=== PATIENT | male | born 1985 | race Caucasian/White ===

== ENCOUNTER → 2019-10-18 | Outpatient (CLI) | payer OTHER | END | disposition home or self-care (01) | LOC: CFH 07:50 | PROVIDERS: ATTEND Internal Medicine Cardiovascular Disease | DX: I37.1 Nonrheumatic pulmonary valve insufficiency (principal); I51.7 Cardiomegaly; Z82.49 Family history of ischemic heart disease and other diseases of the circulatory system; Z87.891 Personal history of nicotine dependence | CPT/HCPCS: 93306 ==

== ENCOUNTER → 2020-06-24 | Outpatient (CLI) | payer OTHER | END | disposition home or self-care (01) | LOC: CFH 12:07 | PROVIDERS: ATTEND Internal Medicine Cardiovascular Disease | DX: I21.19 ST elevation (STEMI) myocardial infarction involving other coronary artery of inferior wall (principal); R00.2 Palpitations; R94.31 Abnormal electrocardiogram [ECG] [EKG]; I10 Essential (primary) hypertension | CPT/HCPCS: 78452; 93017; A9502 ==

== ENCOUNTER → 2020-07-10 | Day surgery (SDC) | payer OTHER ==
[~2020-07-10] VITALS: Ht 180.3 cm; Wt 93.2 kg
[~2020-07-10] MED LIST: ANAS1TAB49 PO; ATOR-2 PO; BIVALIRUDIN 250 MG ONE; FENTANYL PF 100 MCG/2ML ONE; HEPARIN 1,000 UNITS/ML, 10ML ONE; LIDOCAINE-MPF 1%, 5ML ONE; MIDAZOLAM 1 MG/ML, 5ML ONE; NITROGLYCERIN 30 MCG/ML, 20ML VIAL ONE; SODIUM CHLORIDE 0.9% 1,000 ML IV SCH; TEST200V3 IM; TICAGRELOR 90 MG TABLET ONE; VERAPAMIL 2.5 MG/ML, 2ML ONE
[2020-07-10 09:00] VITALS: BP 130/88
[2020-07-10 09:27] LABS: BASOPHILS % (AUTO) 1 % (0-1); EOSINOPHILS % (AUTO) 1 % (1-7); LYMPHOCYTES % (AUTO) 23 % (22-44); MEAN CORPUSCULAR HGB CONC 34.2 g/dL (33.2-36.2); MEAN PLATELET VOLUME 8.5 fL (7.4-10.4); MONOCYTES % (AUTO) 10 % (2-9); NEUTROPHILS % (AUTO) 66 % (42-75); PLATELET COUNT 243 x10^3/uL (130-400); RED BLOOD COUNT 6.04 x10^6/uL (4.38-5.82); RED CELL DISTRIBUTION WIDTH 12.5 % (9.4-14.8)
[2020-07-10 09:32] LABS: MD NO
[2020-07-10 09:33] LABS: ANION GAP 9 mmol/L (5-15); CHLORIDE 115 mmol/L (98-107); CREATININE 1.25 mg/dL (0.7-1.3)
== END | disposition home or self-care (01) ==
LOC: CACL 08:07
PROVIDERS: ATTEND Internal Medicine Cardiovascular Disease
DX: R93.1 Abnormal findings on diagnostic imaging of heart and coronary circulation (principal); I25.10 Atherosclerotic heart disease of native coronary artery without angina pectoris; F17.220 Nicotine dependence, chewing tobacco, uncomplicated; Z88.1 Allergy status to other antibiotic agents; Z88.2 Allergy status to sulfonamides; Z72.89 Other problems related to lifestyle; Z82.49 Family history of ischemic heart disease and other diseases of the circulatory system; Z79.899 Other long term (current) drug therapy
CPT/HCPCS: 36415; 80048; 85025; 93458; 93571; 99156; 99157; C1769; C1887; C1894; J1644; J2250; J3010; Q9967; J0583

== ENCOUNTER 2020-07-11 15:40 | Emergency (ER) | payer OTHER ==
[~2020-07-11] VITALS: Ht 180.3 cm; Wt 92.9 kg
[~2020-07-11 15:40] MED LIST changes: -BIVALIRUDIN 250 MG ONE; -FENTANYL PF 100 MCG/2ML ONE; -HEPARIN 1,000 UNITS/ML, 10ML ONE; -LIDOCAINE-MPF 1%, 5ML ONE; -MIDAZOLAM 1 MG/ML, 5ML ONE; -NITROGLYCERIN 30 MCG/ML, 20ML VIAL ONE; -SODIUM CHLORIDE 0.9% 1,000 ML IV SCH; -TICAGRELOR 90 MG TABLET ONE; -VERAPAMIL 2.5 MG/ML, 2ML ONE
--- NOTE | 2020-07-11 19:04 | NUR ---
"MASSIVE MIGRAINE, NAUSEA AND LIGHTHEADED. BRIGHT LIGHT MAKES IT WORSE". PT HAD A ARTERIAL CATH (RIGHT RADIAL) DONE YESTERDAY. ECG OBTAINED IN TRIAGE PLACED ON [employer], 186/113
[2020-07-11] MEDS ORDERED: HYDROmorphone 1 MG/ML, 1ML INJ ONE (19:30)
[2020-07-11] MEDS ORDERED: HYDROmorphone 1 MG/ML, 1ML INJ IM PRN (19:30)
--- NOTE | 2020-07-11 19:38 | NUR ---
MEDICATED PER EMAR
--- NOTE | 2020-07-11 19:47 | NUR ---
to ct scan
--- NOTE | 2020-07-11 20:16 | NUR ---
headache improved to 2/10 b/p slightly improved to 165/100
[2020-07-11 21:13] VITALS: BP 142/90
== END 2020-07-11 21:19 | disposition home or self-care (01) ==
LOC: ED 19:35
DX: R51.9 Headache, unspecified (principal); I10 Essential (primary) hypertension; R11.0 Nausea; R53.83 Other fatigue; R94.31 Abnormal electrocardiogram [ECG] [EKG]
CPT/HCPCS: 70450; 93005; 96372; 99285; J1170